=== PATIENT | male | born 1960 | race Caucasian/White ===

== ENCOUNTER 2020-11-26 07:21 | Day surgery (SDC) | payer OTHER ==
[~2020-11-26] VITALS: Ht 182.9 cm; Wt 109.0 kg
[~2020-11-26 07:21] MED LIST: ASPIR-TRIN325 MG PO; ATENOLOL50 MG PO; DELZICOL400 M1 PO; HYDROCHLOROTHIA25 MG PO; IMURAN50 MG PO; LIPITOR40 MG PO; OSTERA TABLET1 EACH PO
--- NOTE | 2020-11-26 11:08 | NUR ---
11/26/20 1108 Ivon Goldman 1100 PATIENT ARRIVES TO PACU UNRESPONSIVE TO PAIN. ORAL AIRWAY IN PLACE. ALSO REQUIRES JAW THRUST TO MAINTAIN AIRWAY. RESP EVEN AND UNLABORED, MASK AT 10 LITERS 1105 PATIENT CONTINUES TO BE UNRESPONSIVE TO PAIN, ORAL AIRWAY IN PLACE, CONTINUES TO REQUIRE ADDITIONAL JAW THRUST BY RN. RESP EVEN AND UNLABORED, WITH AIRWAY SUPPORT IN PLACE. MASK DECREASED TO 6 LITERS.
[2020-11-26] MEDS ORDERED: MOTRIN IB200 MG PO (11:23)
[2020-11-26] MEDS ORDERED: PERCOCET 7.5-31 EACH PO (11:23)
[2020-11-26] MEDS ORDERED: TYLENOL EXTRA500 MG PO (11:24)
--- NOTE | 2020-11-26 11:47 | NUR ---
PATIENT BACK TO ROOM FROM PACU. AWAKE ON AND OFF, REPORTS PAIN 2/10 ON PAIN SCALE. OXYGEN ON AT 1L NC. VSS, BP SOFT. SURGICAL SITE X3 PUNCTURE SITES, WITH STERI STRIPS C/D/I. DISCUSED POC WITH PATIENT AND S.O. ANSWERED QUESTIONS AND CONCERNS. CALL LIGHT WITHIN REACH.
--- NOTE | 2020-11-26 12:43 | NUR ---
PATIENT AWAKE RESTING BACK, REPORTS PAIN WITH COUGHING. PROVIDED EDUCATION ON SPLINTING. PROVIDED PAIN MEDICAITON PER DEC. VSS. PATIENT EATING AND DRINKING WELL. PLAN TO GET UP TO BATHROOM. SURGICAL SITE HAS NO NEW DRAINAGE, STERI STRIPS INTACT.
--- NOTE | 2020-11-26 13:30 | NUR ---
PATIENT VOIDED WELL, TOLERATED ACTIVITY WELL. STEADY ON FEET WITH AMBULATION. PATIENT REPORTS PAIN 3/10 AFTER DRESSING. ADMINISTERED SECOND PERCOCET PER MAR, PATIENT TRAVELING 2 HOURS TO GET HOME AND WILL NEED TO FEEL SCRIPT ONCE THERE. PROVIDED DISCHARGE EDUCATION, SCRIPT AND PICTURES. PATIENT VERBALIZED UNDERSTANDING. PROVIDED PATIENT WITH WHEELCHAIR RIDE TO POV, PATIENT TRANSFERED INTO VEHICLE WELL.
--- NOTE | 2020-11-26 17:19 | EKG ---
[facility] [address] [facility] [place], [place] [address] Signed Sinus bradycardia Right bundle branch block Inferior infarct , age undetermined Abnormal ECG No previous ECGs available Confirmed by AUGUSTINE DUNCAN MD ([id number]) on 11/26/2020 5:19:00 PM Electronically Signed By: AUGUSTINE DUNCAN MD 11/26/20 1719 PATIENT NAME: DIPIKA YUEN TIERA Electrocardiogram DATE OF : 58 PHYSICIAN: AUGUSTINE DUNCAN MD REPORT #: [id number] REPORT IS CONFIDENTIAL AND NOT TO BE RELEASED WITHOUT AUTHORIZATION
--- NOTE | 2020-11-27 10:16 | OR ---
[facility] [address] [place], [place] [address] Signed DATE OF OPERATION: 11/26/2020 SURGEON: Andres Amezcua MD PREOPERATIVE DIAGNOSES: 1. Ulcerative colitis, possible sclerosing cholangitis. 2. Persistently elevated liver enzymes (alkaline phosphatase 235). 3. Obesity. POSTOPERATIVE DIAGNOSES: 1. Ulcerative colitis, possible sclerosing cholangitis. 2. Persistently elevated liver enzymes (alkaline phosphatase 235). 3. Obesity. 4. Fatty infiltration of liver and granular appearance. PROCEDURE: Laparoscopic liver biopsy. ANESTHESIA: General endotracheal; Andres Linton CRNA and local 10 mL of 0.25% Marcaine with epinephrine. INDICATION: This 60-year-old white man is a patient of Dr. Louis Becerra of [place], [place]. He has been noted to have increased liver enzymes over time. Notes from Dr. Becerra described the patient having underlying ulcerative colitis and "primary sclerosing cholangitis." The affirmation of the latter diagnosis is uncertain to me and will be a presumption. Labs in July of 2020 showed elevated alkaline phosphatase and transaminases and repeat testing on August 19, 2020, showed alkaline phosphatase elevated to 150 with other transaminases normal. The patient had discontinued alcohol which did improve those enzymes. He has no significant symptoms of upper abdominal pain or anything of that sort, has no coagulopathy. His current medications include Asacol, azathioprine, aspirin, hydrochlorothiazide, atorvastatin and atenolol. 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 His most recent alkaline phosphatase was persistently elevated at 235 (November 15). The other liver enzymes are normal. He is admitted at this time to undergo a liver biopsy upon referral from Dr. Becerra to affirm and refute the underlying diagnosis of sclerosing cholangitis or other underlying hepatic abnormalities. The risks of bleeding, infection, and so forth were reviewed with him and his . They understand and wished to proceed. Electronically Signed By: ANDRES AMEZCUA MD 11/27/20 1016 PATIENT NAME: DIPIKA YUEN OPERATIVE REPORT DATE OF : 58 REPORT #: [id number] PHYSICIAN: ANDRES AMEZCUA MD PCP: LOUIS BECERRA MD REPORT IS CONFIDENTIAL AND NOT TO BE RELEASED WITHOUT AUTHORIZATION [facility] [address] [place], [place] [address] Signed FINDINGS: He had no evidence of ascites. He did have a fatty liver and a mild granular appearance, but no true cirrhotic changes. Liver biopsies were obtained of the medial segment of the left lobe of the liver without problem. Two good specimens were obtained. There was no untoward bleeding with the use of electrocautery. There were no other findings of concern. DESCRIPTION OF PROCEDURE: The patient was brought to the operating room, given a general endotracheal anesthetic. Preoperative antibiotic Ancef was given. Sequential compression device stockings were used and heparin subcutaneously administered. The abdomen was clipped and prepared with chlorhexidine solution and draped sterilely. An infraumbilical incision was made and using an open Jaja cannula technique, pneumoperitoneum was achieved to a level of 14 mmHg of carbon dioxide gas. Intraabdominal inspection showed no sign of ascites or carcinomatosis. The omentum was draped over the liver obscuring it initially. A 5 mm epigastric port was placed and single hand manipulation unfurled the omentum from over the liver. There was adherence of a portion of omentum to the liver in the left medial segment of uncertain etiology or origin. There was no sign of neoplasm. There was no sign of obvious cirrhosis, but the liver was fatty infiltrated and had a fine granular appearance. A 14-gauge Biopty gun biopsy needle was passed under direct visualization in the epigastric area directly abutting the liver and allowing for two separate biopsies to be obtained. Both were good core biopsies. Hemostasis was assured with electrocautery. Irrigation was undertaken. Pneumoperitoneum was relieved for 2 minutes and then re-examination of the biopsy site showed no ongoing bleeding and good hemostasis. Specimens were sent for pathology. The trocars were removed and the infraumbilical fascial incision closed with interrupted 0 Vicryl suture. A 10 mL of 0.25% Marcaine with epinephrine was injected locally. The skin closed with interrupted 3-0 Vicryl. Steri-Strips were applied. The patient was ultimately extubated and transported to the recovery room in good condition having suffered no complications. Sponge, needle, and instrument counts were reported as correct x3. Andres Amezcua MD Electronically Signed By: ANDRES AMEZCUA MD 11/27/20 1016 PATIENT NAME: DIPIKA YUEN OPERATIVE REPORT DATE OF : 58 REPORT #: [id number] PHYSICIAN: ANDRES AMEZCUA MD PCP: LOUIS BECERRA MD REPORT IS CONFIDENTIAL AND NOT TO BE RELEASED WITHOUT AUTHORIZATION [address] [address] Signed /[facility] /[id number] cc: Louis Becerra MD Copies: LOUIS BECERRA MD ~ Electronically Signed By: ANDRES AMEZCUA MD 11/27/20 1016 PATIENT NAME: DIPIKA YUEN OPERATIVE REPORT DATE OF : 58 REPORT #: [id number] PHYSICIAN: ANDRES AMEZCUA MD PCP: LOUIS BECERRA MD REPORT IS CONFIDENTIAL AND NOT TO BE RELEASED WITHOUT AUTHORIZATION
--- NOTE | 2020-12-01 14:02 | PATH ---
[facility] [address] [facility] [place] [address] Signed SPECIMEN(S): A LIVER NEEDLE BIOPSIES SPECIMEN SOURCE: A. LIVER NEEDLE BIOPSIES CLINICAL HISTORY: Laparoscopic liver biopsy. Elevated liver enzymes (persistently elevated alkaline phosphatase, most recent 235 on Nov 15, 2020). History of ulcerative colitis, dyslipidemia. FINAL PATHOLOGIC DIAGNOSIS: Liver, needle core biopsy: - Chronic hepatitis, stage 1. COMMENT: An adequate number of portal tracts are present for evaluation. Sections demonstrate mixed inflammation within the portal tracts comprised of mature lymphocytes, eosinophils, rare neutrophils, and rare plasma cells. Bile ductular reaction is present, as confirmed with a CK7 immunohistochemical stain; there is no duct loss or onion-skin fibrosis. Scattered rare foci of lobular necroinflammation with necrotic hepatocytes are seen. There is very minimal macrovesicular steatosis (less than 5%). Trichrome and reticulin stains demonstrate portal fibrosis (stage1). Copper stain is negative. There is no evidence of alpha-1 antitrypsin disease with PAS/D stain and there is no abnormal iron accumulation with iron stain. 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 There is no evidence of autoimmune hepatitis or other biliary disease. As part of [facility] Quality Improvement Program, this case was reviewed by another member of our pathology staff, Dr. Libby Antonio, fellowship-trained GI/liver pathologist. NAL: :cml:C2NR MICROSCOPIC EXAMINATION: Histologic sections of all submitted blocks are examined by light microscopy. These findings, together with the gross examination, support the pathologic diagnosis. GROSS DESCRIPTION: PATIENT NAME: DIPIKA YUEN PATHOLOGY DATE OF : 58 REPORT #: [id number] PHYSICIAN: CRISTHIAN SOUZA PCP: JEREMY BECERRA MD REPORT IS CONFIDENTIAL AND NOT TO BE RELEASED WITHOUT AUTHORIZATION [facility] [address] [place] [id number] Signed The specimen, labeled "OENOLOGIST, A.," and designated on the requisition "liver biopsy," is received in formalin and consists of two dark davison, cylindrical tissue cores measuring up to 0.1 cm diameter and ranging 1.0-1.6 cm in length. Tissue cores are inked with eosin and entirely submitted in cassette (A1). AT (under the direct supervision of a pathologist) The Gross Description was prepared using a voice recognition system. The report was reviewed for accuracy; however, sound-alike word errors, addition and/or deletions may occur. If there is any question about this report, please contact Client Services. PERFORMING LABORATORY: The technical component was performed by [facility], [address] [place] [id number] (Openstack Developer: Cathi Cervantes MD; CLIA# [id number]). [facility], [address] [address] (CLIA# [id number]). Diagnostician: Berenice Lobo MD Pathologist Electronically Signed 12/01/2020 Copies: ~ PATIENT NAME: DIPIKA YUEN PATHOLOGY DATE OF : 58 REPORT #: [id number] PHYSICIAN: CRISTHIAN PATHOLOGY PCP: JEREMY BECERRA MD REPORT IS CONFIDENTIAL AND NOT TO BE RELEASED WITHOUT AUTHORIZATION
== END 2020-11-26 13:40 | disposition home or self-care (01) ==
LOC: DS 07:21
PROVIDERS: ATTEND Surgery
PROC: 0FB24ZX Excision of Left Lobe Liver, Percutaneous Endoscopic Approach, Diagnostic (ICD-10-PCS; principal; 2020-11-26 08:30)
DX: K73.9 Chronic hepatitis, unspecified (principal); K51.90 Ulcerative colitis, unspecified, without complications; E78.5 Hyperlipidemia, unspecified; I10 Essential (primary) hypertension; E66.9 Obesity, unspecified; Z79.82 Long term (current) use of aspirin; Z68.38 Body mass index [BMI] 38.0-38.9, adult
CPT/HCPCS: 00790; 93005; 93010; J0330; J0690; J1100; J1644; J1885; J2250; J2405; J2704; J2765; J3010; J7121